=== PATIENT | female | born 1955 | race Caucasian/White ===

== ENCOUNTER → 2016-10-28 | Outpatient (CLI) | payer OTHER ==
[~2016-10-28] MED LIST: ZOCOR OR; ZYRTEC OR
== END ==
LOC: ULTRA 07:44
DX: I77.811 Abdominal aortic ectasia (principal)

== ENCOUNTER → 2016-10-31 | Outpatient (CLI) | payer OTHER ==
[2016-10-31 16:13] LABS: URINE BILIRUBIN NEGATIVE (Negative); URINE BLOOD NEGATIVE (Negative); URINE COLOR YELLOW; URINE GLUCOSE-RANDOM* NEGATIVE (Negative); URINE KETONES NEGATIVE (Negative); URINE LEUKOCYTES-REFLEX 2+ (Negative); URINE PROTEIN (DIPSTICK) NEGATIVE (Negative); URINE UROBILINOGEN 0.2 E.U./dl (0.2-1.0)
[2016-10-31 16:25] LABS: CASTS None Seen /LPF (None Seen); CRYSTALS None Seen /LPF (None Seen); SQUAMOUS None Seen /LPF (0-3); URINE RBC None Seen /HPF (0-2)
== END ==
LOC: LAB 15:48
DX: Z01.818 Encounter for other preprocedural examination (principal)

== ENCOUNTER → 2016-11-07 | Outpatient (CLI) | payer OTHER ==
--- NOTE | ~2016-11-07 | 2DMMODE ---
[facility] [address] [place] [address] 2 D/M-MODE ECHOCARDIOGRAM Name: ASHAJOSH TOSHIA Room #: REG CL [facility]#: [id number] Admission: 11/07/16 Attend Phys: Irineo Dao MD Discharge: Date of : 53 Date of Service: 11/07/16 0907 Report #: [id number] THIS REPORT FOR: //name// APPROVED REPORT Study performed: 11/07/2016 07:25:07 EXAM: Comprehensive 2D, Doppler, and color-flow Echocardiogram Patient Location: Out-Patient Blood Pressure: 138/60 mmHg HR: 65 bpm Rhythm: NSR Other Information Study Quality: Adequate Indications Pre-Op hip surgery clearence. Hx: HLP 2D Dimensions RVDd: 26.30 mm LVEF(%): 78.49 (>50%) IVSd: 9.10 (7-11mm) LVOT Diam: 21.39 (18-24mm) LVDd: 41.04 mm PWd: 8.32 (7-11mm) Ascending Ao: 27.60 (22-36mm) LVDs: 21.89 (25-40mm) Aortic Root: 29.35 mm Castillo's LVEF: 78.49 % Volumes Left Atrial Volume (Systole) Single Plane 4CH: 32.83 mL Single Plane 2CH: 29.42 mL LA ESV Index: 21.00 mL/m2 Aortic Valve AoV Peak Rickie.: 1.26 m/s AO Peak Gr.: 6.32 mmHg LVOT Max P.28 mmHg LVOT Max V: 1.03 m/s Mitral Valve E/A Ratio: 1.3 MV Decel. Time: 135.48 ms MV E Max Rickie.: 0.95 m/s [facility] [address] [place] [address] 2 D/M-MODE ECHOCARDIOGRAM Name: JOSH BARRY Room #: REG [facility]#: [id number] Admission: 11/07/16 Attend Phys: Irineo Dao MD Discharge: Date of : 53 Date of Service: 11/07/16 0907 Report #: [id number] MV A Rickie.: 0.76 m/s MV PHT: 39.29 ms Pulmonary Valve PV Peak Rickie.: 1.61 m/s PV Peak Gr.: 10.37 mmHg Pulmonary Vein P Vein S: 56.4 m/s P Vein D: 42.4 m/s Tricuspid Valve TR Peak Rickie.: 1.90 m/s RAP Estimate: 5.00 mmHg TR Peak Gr.: 14.51 mmHg RVSP: 20.00 mmHg Left Ventricle The left ventricle is normal size. There is normal LV segmental wall motion. There is normal left ventricular wall thickness. Left ventricular systolic function is normal. LVEF is 60-65%. Grade II - pseudonormal filling dynamics. Right Ventricle The right ventricle is normal size. The right ventricular systolic function is normal. Atria The left atrium size is normal. The right atrium size is normal. Aortic Valve The aortic valve is normal in structure. No aortic regurgitation is present. There is no aortic valvular stenosis. Mitral Valve The mitral valve is normal in structure. Trace mitral regurgitation. Tricuspid Valve The tricuspid valve is normal in structure. There is trace tricuspid regurgitation. The right atrial pressure is estimated at 5 mmHg. Estimated PAP is 20mmHg. Pulmonic Valve The pulmonary valve is normal in structure. Trace pulmonic regurgitation. Great Vessels [facility] [address] [place] [address] 2 D/M-MODE ECHOCARDIOGRAM Name: JOSH BARRY Room #: REG [facility]#: [id number] Admission: 11/07/16 Attend Phys: Irineo Dao MD Discharge: Date of : 53 Date of Service: 11/07/16 0907 Report #: [id number] The aortic root is normal in size. The ascending aorta is normal in size. IVC is normal in size and collapses >50% with inspiration. Pericardium There is no pericardial effusion. <Conclusion> The left ventricle is normal size. Left ventricular systolic function is normal. Grade II - pseudonormal filling dynamics. The right ventricle is normal size. The left atrium size is normal. The aortic valve is normal in structure. Trace mitral regurgitation. There is trace tricuspid regurgitation. The right atrial pressure is estimated at 5 mmHg. Estimated PAP is 20mmHg. <ELECTRONICALLY SIGNED> By: Irineo Dao MD 11/07/16906 6 6 Irineo Dao MD /INF
== END ==
LOC: NUC 08:02
DX: Z01.818 Encounter for other preprocedural examination (principal); E78.5 Hyperlipidemia, unspecified; R07.9 Chest pain, unspecified